=== PATIENT | female | born 1975 ===

== ENCOUNTER 2017-09-03 16:32 | Emergency (ER) | payer SELFPAY ==
[2017-09-03 17:30] LABS: RBC URINE < 1 /hpf (0-3); URINE BILIRUBIN NEGATIVE (NEGATIVE); URINE BLOOD NEGATIVE (NEGATIVE); URINE COLOR Yellow (YELLOW); URINE GLUCOSE (UA) NORMAL (Normal); URINE KETONE TRACE mg/dL (NEGATIVE); URINE LEUKOCYTE ESTERASE NEG Leu/uL (Negative); URINE PROTEIN NEGATIVE (NEGATIVE); URINE UROBILINOGEN NORMAL mg/dL (0.2-1.0); WBC URINE 3 /hpf (0-5)
--- NOTE | 2017-09-03 17:39 | C.PDOC ---
History Of Present Illness 42 yr old female presents to the ER with complaints of constant low back, radiating to the suprapubic area for the past 4 days. Patient states the pain is made worse when she is sitting and going to a standing position. Patient reports the pain is associated with hematuria for the past 2 days. Patient states 15 years ago she had some form of kidney infection. Reports taking ibuprofen with mild relief. Otherwise patient denies fever, chills, chest pain, SOB, nausea, vomiting, diarrhea, dysuria, vaginal discharge, vaginal bleeding, weakness or numbness. Time Seen by Provider: 09/03/17 16:49 Chief Complaint (Nursing): Female Genitourinary History Per: Patient History/Exam Limitations: no limitations Onset/Duration Of Symptoms: Days (4) Current Symptoms Are (Timing): Still Present Past Medical History Reviewed: Historical Data, Nursing Documentation, Vital Signs Vital Signs: Last Vital Signs Temp 98.1 F 09/03/17 18:26 Pulse 67 09/03/17 18:26 Resp 18 09/03/17 18:26 BP 127/85 09/03/17 18:26 Pulse Ox 98 09/03/17 18:26 Family History: States: No Known Family Hx - Social History Hx Alcohol Use: No Hx Substance Use: No - Immunization History Hx Tetanus Toxoid Vaccination: No Hx Influenza Vaccination: No Hx Pneumococcal Vaccination: No Review Of Systems Except As Marked, All Systems Reviewed And Found Negative. Constitutional: Negative for: Fever, Chills Cardiovascular: Negative for: Chest Pain Respiratory: Negative for: Shortness of Breath Gastrointestinal: Positive for: Abdominal Pain (Superpubic ). Negative for: Nausea, Vomiting, Diarrhea Genitourinary: Positive for: Hematuria. Negative for: Dysuria, Vaginal Discharge, Vaginal Bleeding Musculoskeletal: Positive for: Back Pain (Low back pain) Neurological: Negative for: Weakness, Numbness Physical Exam - Physical Exam Appears: Non-toxic, In Acute Distress (Mild) Skin: Warm, Dry, No Rash Head: Atraumatic, Normacephalic Oral Mucosa: Moist Neck: Normal, Normal ROM, Supple Cardiovascular: Rhythm Regular, No Murmur Respiratory: Normal Breath Sounds, No Rales, No Rhonchi, No Stridor, No Wheezing Gastrointestinal/Abdominal: Soft, Tenderness (Mild superpubic), No Guarding, No Rebound Back: Other ((+) Paralumbar tenderness) Extremity: Normal ROM, No Swelling Neurological/Psych: Oriented x3, Normal Speech, Normal Motor ED Course And Treatment O2 Sat by Pulse Oximetry: 100 (RA) Pulse Ox Interpretation: Normal Medical Decision Making Medical Decision Making: PLAN: * Urinalysis UA (-). UA results d/w the patient. Patient medicated with toradol IM and flexeril PO. Dx of musculoskeletal back pain d/w the patient. Disposition Counseled Patient/Family Regarding: Studies Performed, Diagnosis, Need For Followup, Rx Given - Disposition Referrals: [facility] [Outside] Disposition: HOME/ ROUTINE Disposition Time: 18:14 Condition: STABLE Additional Instructions: Follow up with the clinic in 2 days without fail. Take medication as prescribed. Return to the ER at any time for any new or worsening symptoms. Prescriptions: Cyclobenzaprine [Cyclobenzaprine HCl] 10 mg PO TID PRN #15 tab PRN Reason: Muscle Spasm Naproxen 500 mg PO BID #30 tab Instructions: Acute Low Back Pain (ED) Forms: Work/School/Gym Excuse, [employer] (Panamanian) Print Language: PERSIAN - Clinical Impression Clinical Impression: Low back pain - PA / [employer] / Resident Statement MD/DO has reviewed & agrees with the documentation as recorded. - Scribe Statement The provider has reviewed the documentation as recorded by the Scribe Harmony Santana All medical record entries made by the Hiramibhelga were at my direction and personally dictated by me. I have reviewed the chart and agree that the record accurately reflects my personal performance of the history, physical exam, medical decision making, and the department course for this patient. I have also personally directed, reviewed, and agree with the discharge instructions and disposition.
[2017-09-03 18:27] VITALS: BP 127/85; PULSE 67; RESP 18; TEMP 98.1
[2017-09-03 22:14] VITALS: O2SAT 100
== END 2017-09-03 18:35 | disposition home or self-care (01) ==
LOC: C.ER 16:32
DX: M54.5 Low back pain (principal)
CPT/HCPCS: 81001; 87086; 96372; 99285; J1885